=== PATIENT | female | born 1950 | race Caucasian/White ===

== ENCOUNTER 2017-06-09 12:25 | Emergency (ER) | payer OTHER ==
[~2017-06-09] VITALS: Ht 162.6 cm; Wt 74.0 kg
[2017-06-09 12:28] VITALS: BP 168/92; PULSE 86; RESP 15; TEMP 97.8; O2SAT 98
[2017-06-09 13:35] LABS: BLOOD, URINE LARGE (NEG); GLUCOSE,URINE NEG (NEG); KETONE, URINE NEG (NEG); NITRITE,URINE NEG (NEG); PH, URINE 5.5 (5.0-8.5)
[2017-06-09] MEDS ORDERED: CALCTAB98 PO (13:37)
[2017-06-09] MEDS ORDERED: MELA5TAB15 PO (13:37)
[2017-06-09] MEDS ORDERED: CHOL100025 CHEW (13:38)
[2017-06-09] MEDS ORDERED: [UNRECOGNIZED DRUG - OTHER] PO (13:38)
[2017-06-09] MEDS ORDERED: METF1000 PO (13:38)
[2017-06-09] MEDS ORDERED: GLIP-157 PO (13:38)
[2017-06-09] MEDS ORDERED: LISI-515 PO (13:38)
[2017-06-09] MEDS ORDERED: BENA25CA4 PO (13:38)
[2017-06-09] MEDS ORDERED: VENL50TA PO (13:38)
[2017-06-09] MEDS ORDERED: KRIL1000 PO (13:38)
[2017-06-09] MEDS ORDERED: CARV12.52 PO (13:38)
[2017-06-09] MEDS ORDERED: ONCETAB7 (13:38)
[2017-06-09] MEDS ORDERED: SODIUM CHLORIDE 0.9% FLUSH 10 ML FLUSH IV FLUSH PRN (13:45)
[2017-06-09 13:46] LABS: METHOD OF COLLECTION CLEAN CATCH; URINE COLOR YELLOW (YELLW/STRAW)
[2017-06-09 13:47] LABS: RBC, URINE 15-19 /hpf (0-3); RENAL EPITHELIAL CELLS 0-5 /hpf; SQUAMOUS EPITHELIAL CELL URINE 0-5 /hpf (0-5)
[2017-06-09 13:48] LABS: COMMENT (UR) CULTURE INDICATED; CULTURE IF INDICATED CULTURE INDICATED
[2017-06-09 13:55] VITALS: BP 173/96; PULSE 78; RESP 16; O2SAT 98; O2SAT 99
[2017-06-09] MEDS ORDERED: SODIUM CHLOR 0.9% 1000 ML INJ 1,000 ML IV ONE (14:00)
[2017-06-09] MEDS ORDERED: LEVOFLOXACIN 750 MG PREMIX INJ 150 ML IV ONE (14:00)
--- NOTE | 2017-06-09 14:04 | PD ---
HPI Chief Complaint: Flank/Kidney Pain Time Seen by Provider: 13:32 Travel History International Travel<30 days: No Contact w/Intl Traveler<30days: No Traveled to known affect area: No History of Present Illness HPI 66-year-old female reports one week of nausea. Yesterday she developed left flank pain. Dysuria and hematuria are reported. The patient believes is due to a kidney stone, similar diagnosis having been experienced many years prior. She denies fever. She has no other complaint today. Severity 11/01 this morning with regard to the pain. PFSH Past Medical History Diabetes: Yes Patient Takes Glucophage: Yes Hypertension: Yes Past Surgical History Other Surgery: Yes (LIPOMA, MOLE REMOVED) Social History Alcohol Use: Yes Tobacco Use: No Substance Use: No Allergies-Medications (Allergen,Severity, Reaction): Coded Allergies: cephalexin (Verified Allergy, Intermediate, DIZZINESS, 06/09/17) Reported Meds & Prescriptions Reported Meds & Active Scripts Active Levofloxacin 750 Mg Tablet 750 Mg PO DAILY 6 Days Reported Carvedilol 12.5 Mg Tab 12.5 Mg PO BID Effexor (Venlafaxine HCl) 50 Mg Tab 50 Mg PO DAILY Metformin (Metformin HCl) 1,000 Mg Tab 1,000 Mg PO BIDPC With meals Glipizide XL (Glipizide) 5 Mg Dionna 5 Mg PO DAILY Take with breakfast or first main meal of the day Lisinopril 20 Mg Tab 20 Mg PO DAILY Krill Oil 1,000 Mg Cap 1,000 Mg PO DAILY [Life Extention] 500 Mg PO BID Once Daily (Multivitamin) 1 Each Tablet Vitamin D3 (Cholecalciferol) 1,000 Unit Chew 1,000 Units CHEW DAILY Benadryl Allergy (Diphenhydramine HCl) 25 Mg Cap 1 Tab PO DAILY [Calcium] 200 Mg PO BID Melatonin 5 Mg Tab 3 Mg PO BID Review of Systems Except as stated in HPI: all other systems reviewed are Neg Physical Exam Narrative GENERAL: 66-year-old female pleasant well-nourished well-developed SKIN: Warm and dry. HEAD: Atraumatic. Normocephalic. EYES: Pupils equal and round. No scleral icterus. No injection or drainage. ENT: No nasal bleeding or discharge. Mucous membranes pink and moist. NECK: Trachea midline. No JVD. CARDIOVASCULAR: Regular rate and rhythm. RESPIRATORY: No accessory muscle use. Clear to auscultation. Breath sounds equal bilaterally. GASTROINTESTINAL: The abdomen is soft. Minimal tenderness to percussion along the left flank. MUSCULOSKELETAL: Extremities without clubbing, cyanosis, or edema. No obvious deformities. NEUROLOGICAL: Awake and alert. No obvious cranial nerve deficits. Motor grossly within normal limits. Five out of 5 muscle strength in the arms and legs. Normal speech. PSYCHIATRIC: Appropriate mood and affect; insight and judgment normal. Data Data Last Documented VS Vital Signs Date Time Temp Pulse Resp B/P Pulse Ox O2 Delivery O2 Flow Rate FiO2 06/09/17 15:41 76 20 170/97 98 06/09/17 13:55 Room Air 06/09/17 12:28 97.8 Vital signs reviewed Orders Urinalysis - C+S If Indicated (06/09/17 13:13) Basic Metabolic Panel (Bmp) (06/09/17 13:36) Complete Blood Count With Diff (06/09/17 13:36) Ct Abd/Pel W/O Iv Contrast (06/09/17 13:36) Iv Access Insert/Monitor (06/09/17 13:36) Ecg Monitoring (06/09/17 13:36) Oximetry (06/09/17 13:36) Sodium Chloride 0.9% Flush (Ns Flush) (06/09/17 13:45) Urine Culture (06/09/17 13:05) Levofloxacin 750 Mg Premix Inj (Levaquin (06/09/17 14:00) Sodium Chlor 0.9% 1000 Ml Inj (Ns 1000 M (06/09/17 14:00) Labs Laboratory Tests Test 06/09/17 06/09/17 13:05 13:45 Urine Collection Type CLEAN CATCH Urine Color YELLOW Urine Turbidity SLIGHT Urine pH 5.5 Urine Specific Baker 1.005 Urine Protein 30 mg/dL Urine Glucose (UA) NEG mg/dL Urine Ketones NEG mg/dL Urine Occult Blood LARGE Urine Nitrite NEG Urine Bilirubin NEG Urine Leukocyte Esterase LARGE Urine RBC 15-19 /hpf Urine WBC 25-49 /hpf Urine WBC Clumps FEW Urine Squamous Epithelial 0-5 /hpf Cells Urine Renal Epithelial Cells 0-5 /hpf Microscopic Urinalysis Comment CULTURE INDICATED Urine Collection Time 13:05 White Blood Count 11.5 TH/MM3 Red Blood Count 4.54 MIL/MM3 Hemoglobin 13.2 GM/DL Hematocrit 39.7 % Mean Corpuscular Volume 87.3 FL Mean Corpuscular Hemoglobin 29.1 PG Mean Corpuscular Hemoglobin 33.3 % Concent Red Cell Distribution Width 13.6 % Platelet Count 281 TH/MM3 Mean Platelet Volume 9.1 FL Neutrophils (%) (Auto) 80.0 % Lymphocytes (%) (Auto) 13.5 % Monocytes (%) (Auto) 5.2 % Eosinophils (%) (Auto) 0.9 % Basophils (%) (Auto) 0.4 % Neutrophils # (Auto) 9.3 TH/MM3 Lymphocytes # (Auto) 1.5 TH/MM3 Monocytes # (Auto) 0.6 TH/MM3 Eosinophils # (Auto) 0.1 TH/MM3 Basophils # (Auto) 0.0 TH/MM3 CBC Comment DIFF FINAL Differential Comment Sodium Level 137 MEQ/L Potassium Level 3.8 MEQ/L Chloride Level 102 MEQ/L Carbon Dioxide Level 28.7 MEQ/L Anion Gap 6 MEQ/L Blood Urea Nitrogen 18 MG/DL Creatinine 0.90 MG/DL Estimat Glomerular Filtration 62 ML/MIN Rate Random Glucose 112 MG/DL Calcium Level 8.9 MG/DL MDM Medical Decision Making Medical Screen Exam Complete: Yes Emergency Medical Condition: Yes Differential Diagnosis Constipation, Gastritis, Acute Cholecystitis, Biliary Colic, Pancreatitis, BONILLA , Hepatitis, Bowel Obstruction, Cystitis, Mesenteric Ischemia, AAA, Appendicitis , Renal Stone/Hydronephrosis, GERD, perforated viscous Narrative Course CBC & BMP Diagram 06/09/17 13:45 UA shows a UTI Pt to go home with Levaquin. Return precautions discussed. Levaquin side effect precautions discussed. Diagnosis Primary Impression: Cystitis Referrals: Primary Care Physician call for appointment Additional Instructions: You have a choice when it comes to health care, and we are glad that you chose [facility]. Hopefully, we have met your expectations on today's visit. You are welcome to return to [facility] at any time, as we are committed to meeting the health care needs of our community. Med/Other Pt SpecificInfo: Prescription(s) given Scripts Levofloxacin 750 Mg [id number] Mg PO DAILY 6 Days Ref 0 Prov:Moy Stuart MD 06/09/17 Disposition: 01 DISCHARGE HOME Condition: Stable Moy Stuart MD Jun 09, 2017 14:04
[2017-06-09 14:06] LABS: AUTOMATED NEUTROPHIL # 9.3 TH/MM3 (1.8-7.7); BASOPHIL % 0.4 % (0.0-2.0); EOSINOPHIL # 0.1 TH/MM3 (0-0.4); EOSINOPHIL % 0.9 % (0.0-4.0); HEMATOCRIT 39.7 % (35.0-46.0); HEMO FLAGS DIFF FINAL; LYMPH % 13.5 % (9.0-44.0); LYMPHOCYTE # 1.5 TH/MM3 (1.0-4.8); MEAN CELL VOLUME 87.3 FL (80.0-100.0); MEAN CORPUSCULAR HEMOGLOBIN 29.1 PG (27.0-34.0); MEAN CORPUSCULAR HGB CONC 33.3 % (32.0-36.0); MONO % 5.2 % (0.0-8.0); PLATELET COUNT 281 TH/MM3 (150-450); RED BLOOD COUNT 4.54 MIL/MM3 (4.00-5.30); RED CELL DISTRIBUTION WIDTH 13.6 % (11.6-17.2); WHITE BLOOD COUNT 11.5 TH/MM3 (4.0-11.0)
[2017-06-09 14:18] LABS: POTASSIUM 3.8 MEQ/L (3.5-5.1)
[2017-06-09 14:21] LABS: BICARBONATE 28.7 MEQ/L (21.0-32.0)
--- NOTE | 2017-06-09 14:41 | RADRPT ---
EXAM DATE/TIME: 06/09/2017 14:13 [facility] COMPARISON: No previous studies available for comparison. INDICATIONS : Lower anterior abdominal and back pain. Gross hematuria. ORAL CONTRAST: No oral contrast ingested. RADIATION DOSE: 16.78 CTDIvol (mGy) MEDICAL HISTORY : Hypertension. Diabetes mellitus type 2. SURGICAL HISTORY : None. ENCOUNTER: Initial ACUITY: 2 days PAIN SCALE: 6/10 LOCATION: Bilateral lower quadrant back TECHNIQUE: Volumetric scanning of the abdomen and pelvis was performed. Using automated exposure control and ad justment of the mA and/or kV according to patient size, radiation dose was kept as low as reasonably achievable to obtain optimal diagnostic quality images. DICOM format image data is available electro nically for review and comparison. FINDINGS: LOWER LUNGS: The visualized lower lungs are clear. LIVER: Homogeneous density without lesion. There is no dilation of the biliary tree. Status post cholecyste ctomy. SPLEEN: Normal size without lesion. PANCREAS: Within normal limits. KIDNEYS: Normal in size and shape. There is no mass, stone, or hydronephrosis. The ureters are unremarkable i n appearance. ADRENAL GLANDS: Within normal limits. VASCULAR: There is no aortic aneurysm. BOWEL/MESENTERY: The stomach, small bowel, and colon demonstrate no acute abnormality. There is no free intraperitone al air or fluid. ABDOMINAL WALL: Within normal limits. RETROPERITONEUM: There is no lymphadenopathy. BLADDER: No wall thickening or mass. REPRODUCTIVE: Within normal limits. INGUINAL: There is no lymphadenopathy or hernia. MUSCULOSKELETAL: Within normal limits for patient age. CONCLUSION: 1. The kidneys, ureters and bladder are unremarkable in appearance on this noncontrast study with no renal calculi or obstruction. 2. Status post cholecystectomy. Parish Cevallos MD on June 09, 2017 at 14:38 Board Certified Radiologist. This report was verified electronically.
[2017-06-09] MEDS ORDERED: LEVO750T3 PO (14:58)
[2017-06-09 15:07] VITALS: BP 175/101; PULSE 91; RESP 20; O2SAT 100
[2017-06-09 15:41] VITALS: BP 170/97; PULSE 76; RESP 20; O2SAT 98
== END 2017-06-09 16:18 | disposition home or self-care (01) ==
LOC: PHED 12:25
DX: N30.91 Cystitis, unspecified with hematuria (principal); R10.9 Unspecified abdominal pain; E11.9 Type 2 diabetes mellitus without complications; I10 Essential (primary) hypertension; Z79.84 Long term (current) use of oral hypoglycemic drugs
CPT/HCPCS: 74176; 80048; 81001; 85025; 87086; 96365; 96366; 99285; J1956; J7030